=== PATIENT | male | born 1945 | race Two or more races ===

== ENCOUNTER → 2020-04-24 | Outpatient (CLI) | payer MEDICARE, SELFPAY | END | disposition home or self-care (01) | LOC: LABSPEC 11:02 | PROVIDERS: Referring Provider Dermatology; Visit Provider Dermatology | DX: L02.415 Cutaneous abscess of right lower limb (principal) | CPT/HCPCS: 87070; 87205 ==

== ENCOUNTER → 2022-03-17 | Outpatient (CLI) | payer MEDICARE, SELFPAY ==
[2022-03-22 19:07] LABS: HSV 1 By PCR Negative (Negative)
[2022-03-22 21:04] LABS: HSV 2 By PCR Negative (Negative)
== END | disposition home or self-care (01) ==
LOC: LABSPEC 12:47
PROVIDERS: Visit Provider Dermatology
DX: L08.9 Local infection of the skin and subcutaneous tissue, unspecified (principal); L57.0 Actinic keratosis; Z08 Encounter for follow-up examination after completed treatment for malignant neoplasm; Z85.828 Personal history of other malignant neoplasm of skin; L82.1 Other seborrheic keratosis; D18.01 Hemangioma of skin and subcutaneous tissue; L57.8 Other skin changes due to chronic exposure to nonionizing radiation; Z71.89 Other specified counseling
CPT/HCPCS: 87529; 87798